=== PATIENT | male | born 1965 | race Caucasian/White ===

== ENCOUNTER 2021-07-30 22:52 | Inpatient (IN) ==
[2021-07-30 23:50] LABS: Basophils # 0.1 10*3/uL (0.0-0.2); Basophils % 0.7 % (0.0-0.8); Eosinophils # 0.3 10*3/uL (0.0-0.87); Eosinophils % 2.4 % (0.00-10.9); Hematocrit 44.3 VOL% (42.0-52.0); Hemoglobin 14.1 GM/DL (14.0-18.0); Immature Granulocytes % 1.4 %; Immature Granulocytes Absolute 0.16 #; Lymphocytes % 17.6 % (21.2-54.2); Mean Corpuscular HGB Conc 31.8 GM/DL (32-36); Mean Corpuscular Volume 92.3 FL (87-102); Mean Platelet Volume 11.5 FL (9.6-12.0); Monocytes % 5.7 % (1.7-12.7); Neutrophils % 72.2 % (38.7-73.9); Platelet Count 360 T/CUMM (130-400); Red Cell Distribution Width 14.3 % (9.3-17.3); White Blood Count 11.4 T/CUMM (4-12)
[2021-07-31 00:08] LABS: Alanine Aminotransferase 43 U/L (16-61); Albumin 3.4 G/DL (3.4-5.0); Alkaline Phosphatase 95 U/L (45-117); Aspartate Amino Transferase 45 U/L (0-37); Blood Urea Nitrogen 13 MG/DL (7-18); Carbon Dioxide 25 MMOL/L (21-32); Estimated Glom Filtration Rate 74 ML/MIN; Glucose 131 MG/DL (74-106); Osmolality,Calculated 278.5 MOS/KG (273-304); Potassium 3.9 MMOL/L (3.5-5.1); Sodium 139 MMOL/L (136-145); Total Protein 6.9 G/DL (6.4-8.2)
[2021-07-31] MEDS ORDERED: LEVOFLOXACIN INJ 750 MG/150 ML PREMIX IV STA (00:36)
[2021-07-31] MEDS ORDERED: ONDANSETRON 4 MG/2 ML VIAL IV STA (00:36)
[2021-07-31] MEDS ORDERED: methylPREDNISolone SOD SUC 125 MG/2 ML VIAL IV STA (00:36)
[2021-07-31] MEDS ORDERED: SODIUM CHLORIDE 0.9% 500 ML IV STA ×2 (00:36→10:05)
[2021-07-31] MEDS ORDERED: ENOXAPARIN 120 MG/0.8 ML SYRINGE SUBCUT STA (00:46)
[2021-07-31] MEDS ORDERED: ASPIRIN EC 325 MG TABLET PO STA (00:49)
[2021-07-31] MEDS ORDERED: ALBUTEROL NEB SOLN 5 MG/ML 20 ML/BOTTLE CONT NEB SCH (01:00)
[2021-07-31] MEDS ORDERED: GLUCAGON 1 MG VIAL IM PRN (02:54)
[2021-07-31] MEDS ORDERED: METOPROLOL TARTRATE 25 MG TABLET PO STA (02:54)
[2021-07-31] MEDS ORDERED: DEXTROSE 50% 25 GM/50 ML VIAL IV PRN (02:54)
[2021-07-31] MEDS ORDERED: MORPHINE 2 MG/1 ML SYRINGE IV PRN (03:21)
[2021-07-31 03:39] LABS: Basophils # 0.1 10*3/uL (0.0-0.2); Basophils % 0.4 % (0.0-0.8); Eosinophils # 0.1 10*3/uL (0.0-0.87); Eosinophils % 0.4 % (0.00-10.9); Hematocrit 42.9 VOL% (42.0-52.0); Hemoglobin 13.7 GM/DL (14.0-18.0); Immature Granulocytes % 0.8 %; Immature Granulocytes Absolute 0.11 #; Lymphocytes # 1.4 10*3/uL (1.4-4.0); Lymphocytes % 9.8 % (21.2-54.2); Mean Corpuscular HGB Conc 31.9 GM/DL (32-36); Mean Corpuscular Volume 93.1 FL (87-102); Mean Platelet Volume 11.4 FL (9.6-12.0); Monocytes % 4.6 % (1.7-12.7); Platelet Count 337 T/CUMM (130-400); Red Blood Count 4.61 MC/CUMM (3.8-5.5); Red Cell Distribution Width 14.3 % (9.3-17.3); White Blood Count 13.9 T/CUMM (4-12)
[2021-07-31 04:02] LABS: Amorphous Crystals,Urine Occasional /HPF (Few); Bacteria,Urine Occasional /HPF (Few); Bilirubin,Urine Negative (Negative); Blood, Urine Negative (Negative); Calcium Oxalate Crystals,Urine Occasional /HPF (Few); Glucose,Urine (UA) Negative (Negative); Hyaline Casts,Urine 5 /LPF (0-3); Ketones,Urine Negative (Negative); Mucus,Urine Few /LPF (Occasional); Nitrite,Urine Negative (Negative); Protein,Urine 100 MG/DL; RBC,Urine 1 /HPF (0-4); Urine Appearance Slightly Hazy (Clear); Urine Color Yellow (Yellow); Urine Specific Gravity 1.018 (1.001-1.035)
[2021-07-31 04:03] LABS: Barbiturates Screen,Urine Negative (Negative); Benzodiazepines Screen,Urine Negative (Negative); Cannabinoid Screen,Urine Negative (Negative); Opiate Screen,Urine Negative (Negative); Phencyclidine Screen,Urine Negative (Negative)
[2021-07-31 04:09] LABS: Albumin 3.4 G/DL (3.4-5.0); Calcium 9.8 MG/DL (8.5-10.1); Osmolality,Calculated 278.7 MOS/KG (273-304); Potassium 4.5 MMOL/L (3.5-5.1); Risk Ratio 7.23; Thyroid Stimulating Hormone 0.763 uIU/ml (0.358-3.74); Total Protein 6.9 G/DL (6.4-8.2); VLDL Cholesterol 34.4 MG/DL
[2021-07-31] MEDS: ATORVASTATIN 40 MG TABLET PO SCH (08:55)
[2021-07-31] MEDS: PANTOPRAZOLE 40 MG TABLET PO SCH (08:55)
[2021-07-31] MEDS: methylPREDNISolone SOD SUC 40 MG/1 ML VIAL IV SCH ×2 (08:56→21:57)
[2021-07-31] MEDS: NICOTINE 21 MG/24 HR PATCH TRANSDERM SCH ×2 (08:57→14:10)
[2021-07-31] MEDS ORDERED: SODIUM CHLORIDE 0.9% 1,000 ML IV ONE (09:53)
[2021-07-31] MEDS: ALBUTEROL/IPRATROPIUM 3 ML NEB RESP TX PRN ×2 (10:15→17:53)
[2021-07-31] MEDS: ENOXAPARIN 120 MG/0.8 ML SYRINGE SUBCUT SCH (14:10)
[2021-07-31] MEDS: NITROGLYCERIN 2% OINT 1 INCH/GM PACK TOP SCH ×2 (15:33→18:25)
[2021-07-31] MEDS: ONDANSETRON 4 MG/2 ML VIAL IV PRN (18:09)
[2021-07-31] MEDS: METOPROLOL TARTRATE 25 MG TABLET PO SCH (21:57)
[2021-07-31] MEDS: LEVOFLOXACIN INJ 750 MG/150 ML PREMIX IV SCH (21:58)
[2021-07-31] MEDS ORDERED: LEVOFLOXACIN INJ 750 MG/150 ML PREMIX IV SCH (22:00)
[2021-08-01] MEDS: ENOXAPARIN 120 MG/0.8 ML SYRINGE SUBCUT SCH ×2 (00:44→13:37)
[2021-08-01] MEDS: ONDANSETRON 4 MG/2 ML VIAL IV PRN (00:44)
[2021-08-01 06:14] LABS: Basophils % 0.1 % (0.0-0.8); Hematocrit 40.8 VOL% (42.0-52.0); Hemoglobin 12.8 GM/DL (14.0-18.0); Immature Granulocytes Absolute 0.13 #; Lymphocytes # 1.6 10*3/uL (1.4-4.0); Lymphocytes % 11.6 % (21.2-54.2); Mean Corpuscular HGB Conc 31.4 GM/DL (32-36); Mean Corpuscular Volume 94.9 FL (87-102); Monocytes % 6.3 % (1.7-12.7); Platelet Count 322 T/CUMM (130-400); Red Cell Distribution Width 14.5 % (9.3-17.3); White Blood Count 13.7 T/CUMM (4-12)
[2021-08-01] MEDS: NITROGLYCERIN 2% OINT 1 INCH/GM PACK TOP SCH (06:51)
[2021-08-01 07:59] LABS: Calcium 10.5 MG/DL (8.5-10.1); Osmolality,Calculated 272.1 MOS/KG (273-304); Potassium 5.9 MMOL/L (3.5-5.1)
[2021-08-01] MEDS: PANTOPRAZOLE 40 MG TABLET PO SCH (09:53)
[2021-08-01] MEDS: ASPIRIN EC 325 MG TABLET PO SCH (09:53)
[2021-08-01] MEDS: METOPROLOL TARTRATE 25 MG TABLET PO SCH ×2 (09:53→20:51)
[2021-08-01] MEDS: methylPREDNISolone SOD SUC 40 MG/1 ML VIAL IV SCH ×2 (09:53→20:52)
[2021-08-01] MEDS: ATORVASTATIN 40 MG TABLET PO SCH (09:53)
[2021-08-01] MEDS: NICOTINE 21 MG/24 HR PATCH TRANSDERM SCH (10:01)
[2021-08-01] MEDS: cefTRIAXone 1,000 MG in SODIUM CHLORIDE 0.9% 100 ML IV SCH (13:37)
[2021-08-01] MEDS: AZITHROMYCIN INJ 500 MG in SODIUM CHLORIDE 0.9% 250 ML IV SCH (14:15)
[2021-08-01] MEDS ORDERED: MAGNESIUM HYDROXIDE SUSP 30 ML UDCUP PO PRN (16:03)
[2021-08-01] MEDS: ALBUTEROL/IPRATROPIUM 3 ML NEB RESP TX PRN (20:19)
[2021-08-01] MEDS: LEVOFLOXACIN INJ 750 MG/150 ML PREMIX IV SCH (20:53)
[2021-08-02 06:31] LABS: Basophils % 0.1 % (0.0-0.8); Hematocrit 39.2 VOL% (42.0-52.0); Hemoglobin 12.5 GM/DL (14.0-18.0); Immature Granulocytes % 0.8 %; Immature Granulocytes Absolute 0.11 #; Lymphocytes # 1.8 10*3/uL (1.4-4.0); Lymphocytes % 12.7 % (21.2-54.2); Mean Corpuscular HGB Conc 31.9 GM/DL (32-36); Mean Corpuscular Volume 94.7 FL (87-102); Mean Platelet Volume 12.1 FL (9.6-12.0); Monocytes % 5.5 % (1.7-12.7); Neutrophils % 80.9 % (38.7-73.9); Platelet Count 287 T/CUMM (130-400); Red Blood Count 4.14 MC/CUMM (3.8-5.5); Red Cell Distribution Width 14.6 % (9.3-17.3); White Blood Count 14.4 T/CUMM (4-12)
[2021-08-02 06:45] LABS: Potassium 4.9 MMOL/L (3.5-5.1)
[2021-08-02] MEDS ORDERED: MAGNESIUM SULF RIDER 2 GM/50 ML PREMIX IV PRN (07:00)
[2021-08-02] MEDS ORDERED: POTASSIUM CHLORIDE RIDER 10 MEQ/100 ML PREMIX IV PRN (07:00)
[2021-08-02] MEDS: SODIUM CHLORIDE 0.9% 1,000 ML IV SCH ×2 (09:01→21:09)
[2021-08-02] MEDS: METOPROLOL TARTRATE 25 MG TABLET PO SCH ×2 (10:35→21:03)
[2021-08-02] MEDS: PANTOPRAZOLE 40 MG TABLET PO SCH (10:35)
[2021-08-02] MEDS: ATORVASTATIN 40 MG TABLET PO SCH (10:35)
[2021-08-02] MEDS: ASPIRIN EC 325 MG TABLET PO SCH (10:35)
[2021-08-02] MEDS: methylPREDNISolone SOD SUC 40 MG/1 ML VIAL IV SCH ×2 (10:36→21:02)
[2021-08-02] MEDS: NICOTINE 21 MG/24 HR PATCH TRANSDERM SCH (10:41)
[2021-08-02] MEDS ORDERED: HEPARIN/NACL 0.9% 2 UNITS/ML 3,000 UNIT/1,500 ML BAG IV ONE (11:40)
[2021-08-02] MEDS ORDERED: LIDOCAINE 1% 20 ML VIAL ONE (11:40)
[2021-08-02] MEDS ORDERED: DIAZEPAM 5 MG TABLET PO ONE (12:00)
[2021-08-02] MEDS ORDERED: diphenhydrAMINE CAP 50 MG CAPSULE PO ONE (12:00)
[2021-08-02] MEDS ORDERED: fentaNYL 100 MCG/2 ML VIAL ONE (12:48)
[2021-08-02] MEDS ORDERED: MIDAZOLAM 2 MG/2 ML VIAL ONE (12:48)
[2021-08-02] MEDS ORDERED: HEPARIN 5,000 UNIT/1 ML VIAL ONE ×2 (13:23→13:40)
[2021-08-02] MEDS ORDERED: CLOPIDOGREL 300 MG TABLET ONE (13:26)
[2021-08-02] MEDS ORDERED: NITROGLYCERIN DRIP 50 MG/250 ML BOTTLE IV ONE (13:36)
[2021-08-02] MEDS ORDERED: MORPHINE 10 MG/1 ML VIAL ONE (14:08)
[2021-08-02] MEDS ORDERED: ATROPINE 1 MG/10 ML SYRINGE ONE (14:12)
[2021-08-02] MEDS ORDERED: EPTIFIBATIDE 20,000 MCG/10 ML VIAL ONE (14:14)
[2021-08-02] MEDS ORDERED: EPTIFIBATIDE 0 MG/0 ML BOTTLE IV ONE (14:14)
[2021-08-02] MEDS: cefTRIAXone 1,000 MG in SODIUM CHLORIDE 0.9% 100 ML IV SCH (15:19)
[2021-08-02] MEDS: AZITHROMYCIN INJ 500 MG in SODIUM CHLORIDE 0.9% 250 ML IV SCH (16:00)
[2021-08-02] MEDS: LEVOFLOXACIN INJ 750 MG/150 ML PREMIX IV SCH (21:03)
[2021-08-02 21:05] VITALS: BP 99/61
[2021-08-03] MEDS: SODIUM CHLORIDE 0.9% 1,000 ML IV SCH ×3 (01:13→10:28)
[2021-08-03 05:46] LABS: Basophils % 0.1 % (0.0-0.8); Hematocrit 37.9 VOL% (42.0-52.0); Hemoglobin 12.4 GM/DL (14.0-18.0); Immature Granulocytes % 0.8 %; Immature Granulocytes Absolute 0.11 #; Lymphocytes % 14.3 % (21.2-54.2); Mean Corpuscular HGB Conc 32.7 GM/DL (32-36); Mean Corpuscular Volume 92.4 FL (87-102); Mean Platelet Volume 12.3 FL (9.6-12.0); Monocytes % 6.4 % (1.7-12.7); Neutrophils % 78.4 % (38.7-73.9); Platelet Count 277 T/CUMM (130-400); Red Cell Distribution Width 14.5 % (9.3-17.3); White Blood Count 13.7 T/CUMM (4-12)
[2021-08-03 06:40] LABS: Calcium 9.5 MG/DL (8.5-10.1); Potassium 4.4 MMOL/L (3.5-5.1)
[2021-08-03] MEDS ORDERED: CLOPIDOGREL 75 MG TABLET PO SCH (09:00)
[2021-08-03] MEDS: methylPREDNISolone SOD SUC 40 MG/1 ML VIAL IV SCH (10:26)
[2021-08-03] MEDS: PANTOPRAZOLE 40 MG TABLET PO SCH (10:26)
[2021-08-03] MEDS: METOPROLOL TARTRATE 25 MG TABLET PO SCH (10:26)
[2021-08-03] MEDS: ATORVASTATIN 40 MG TABLET PO SCH (10:27)
[2021-08-03] MEDS: ASPIRIN EC 325 MG TABLET PO SCH (10:27)
[2021-08-03] MEDS: NICOTINE 21 MG/24 HR PATCH TRANSDERM SCH (14:47)
[2021-08-04] MEDS ORDERED: ASPIRIN EC 81 MG TABLET PO SCH (09:00)
== END 2021-08-03 12:56 | disposition home or self-care (01) | DRG 246 ==
LOC: EDUNIT# → EDBD → N.ED 22:52 → N.EDINP 07-31 02:54 → SUATTDRO 07-31 02:54 → N.EDINP 07-31 12:48 → N.TELES 07-31 13:08
PROVIDERS: ADMIT Internal Medicine; ATTEND Internal Medicine

== ENCOUNTER 2021-11-05 09:35 | Observation (INO) ==
[2021-11-05] MEDS ORDERED: HEPARIN 5,000 UNIT/1 ML VIAL IV ONE (10:11)
[2021-11-05] MEDS ORDERED: MORPHINE 2 MG/1 ML SYRINGE IV STA (10:11)
[2021-11-05] MEDS ORDERED: NITROGLYCERIN 2% OINT 1 INCH/GM PACK TOP STA (10:11)
[2021-11-05] MEDS ORDERED: ASPIRIN 325 MG TABLET PO STA (10:11)
[2021-11-05] MEDS ORDERED: ONDANSETRON 4 MG/2 ML VIAL IV STA (10:11)
[2021-11-05 10:26] LABS: Basophils # 0.1 10*3/uL (0.0-0.2); Basophils % 0.5 % (0.0-0.8); Eosinophils # 0.2 10*3/uL (0.0-0.87); Eosinophils % 1.6 % (0.00-10.9); Hematocrit 41.8 VOL% (42.0-52.0); Hemoglobin 13.4 GM/DL (14.0-18.0); Immature Granulocytes % 0.6 %; Immature Granulocytes Absolute 0.07 #; Lymphocytes # 1.8 10*3/uL (1.4-4.0); Lymphocytes % 16.3 % (21.2-54.2); Mean Corpuscular HGB Conc 32.1 GM/DL (32-36); Mean Corpuscular Volume 91.3 FL (87-102); Mean Platelet Volume 11.5 FL (9.6-12.0); Monocytes % 6.9 % (1.7-12.7); Neutrophils % 74.1 % (38.7-73.9); Platelet Count 261 T/CUMM (130-400); Red Blood Count 4.58 MC/CUMM (3.8-5.5); Red Cell Distribution Width 15.1 % (9.3-17.3); White Blood Count 11.1 T/CUMM (4-12)
[2021-11-05] MEDS ORDERED: HEPARIN DRIP 25,000 UNITS/500 ML PREMIX IV SCH (10:30)
[2021-11-05 10:48] LABS: Albumin 3.6 G/DL (3.4-5.0); Calcium 9.8 MG/DL (8.5-10.1); Osmolality,Calculated 280.4 MOS/KG (273-304); Potassium 4.4 MMOL/L (3.5-5.1); Total Protein 7.1 G/DL (6.4-8.2)
[2021-11-05 10:52] LABS: PT Patient Result 11.7 SECS (10.5-12.0); Partial Thromboplastin Time 29.6 SECS (23.8-32.1)
[2021-11-05] MEDS ORDERED: SODIUM CHLORIDE 0.45% 1,000 ML IV SCH (12:00)
[2021-11-05] MEDS ORDERED: ONDANSETRON 4 MG/2 ML VIAL IV PRN (12:01)
[2021-11-05] MEDS ORDERED: ACETAMINOPHEN 325 MG TABLET PO PRN (12:01)
[2021-11-05] MEDS ORDERED: HEPARIN/NACL 0.9% 2 UNITS/ML 3,000 UNIT/1,500 ML BAG IV ONE (12:14)
[2021-11-05] MEDS ORDERED: LIDOCAINE 1% 20 ML VIAL ONE (12:14)
[2021-11-05] MEDS ORDERED: fentaNYL 100 MCG/2 ML VIAL ONE ×2 (13:49→15:24)
[2021-11-05] MEDS ORDERED: MIDAZOLAM 2 MG/2 ML VIAL ONE (13:49)
[2021-11-05] MEDS ORDERED: HEPARIN 5,000 UNIT/1 ML VIAL ONE (14:52)
[2021-11-05] MEDS ORDERED: FUROSEMIDE 40 MG TABLET PO SCH (17:00)
[2021-11-05] MEDS: lisinopriL 10 MG TABLET PO SCH (17:27)
[2021-11-05] MEDS: FUROSEMIDE 20 MG TABLET PO SCH (17:27)
[2021-11-05] MEDS ORDERED: ATORVASTATIN 40 MG TABLET PO SCH (21:00)
[2021-11-05] MEDS: METOPROLOL SUCCINATE XL 25 MG TABLET PO SCH (21:49)
[2021-11-06] MEDS ORDERED: guaiFENesin/DM ER 600-30 MG TABLET PO PRN (01:04)
[2021-11-06 07:19] LABS: Basophils # 0.1 10*3/uL (0.0-0.2); Basophils % 0.6 % (0.0-0.8); Eosinophils # 0.1 10*3/uL (0.0-0.87); Eosinophils % 1.1 % (0.00-10.9); Hematocrit 38.1 VOL% (42.0-52.0); Hemoglobin 12.3 GM/DL (14.0-18.0); Immature Granulocytes % 0.6 %; Immature Granulocytes Absolute 0.07 #; Lymphocytes # 2.7 10*3/uL (1.4-4.0); Lymphocytes % 24.9 % (21.2-54.2); Mean Corpuscular HGB Conc 32.3 GM/DL (32-36); Mean Corpuscular Volume 92.5 FL (87-102); Mean Platelet Volume 11.5 FL (9.6-12.0); Monocytes % 8.9 % (1.7-12.7); Neutrophils % 63.9 % (38.7-73.9); Platelet Count 263 T/CUMM (130-400); Red Blood Count 4.12 MC/CUMM (3.8-5.5); Red Cell Distribution Width 15.1 % (9.3-17.3)
[2021-11-06 07:46] LABS: Calcium 9.6 MG/DL (8.5-10.1); Osmolality,Calculated 280.4 MOS/KG (273-304); Potassium 4.4 MMOL/L (3.5-5.1)
[2021-11-06] MEDS ORDERED: CLOPIDOGREL 75 MG TABLET PO SCH (09:00)
[2021-11-06] MEDS ORDERED: FUROSEMIDE 40 MG TABLET PO SCH (09:00)
[2021-11-06] MEDS ORDERED: ASPIRIN EC 81 MG TABLET PO SCH (09:00)
[2021-11-06] MEDS: METOPROLOL SUCCINATE XL 25 MG TABLET PO SCH (09:42)
[2021-11-06] MEDS: FUROSEMIDE 20 MG TABLET PO SCH (09:42)
[2021-11-06] MEDS: lisinopriL 10 MG TABLET PO SCH (09:42)
[2021-11-06 11:08] VITALS: BP 104/68
== END 2021-11-06 11:43 | disposition home or self-care (01) ==
LOC: N.EDINP 09:35 → N.ED 09:35 → N.EDINP 13:45 → N.TELEN 16:13
PROVIDERS: ADMIT Internal Medicine Cardiovascular Disease; ATTEND Internal Medicine Cardiovascular Disease

== ENCOUNTER 2022-01-27 00:05 | Observation (INO) ==
[2022-01-27] MEDS ORDERED: ALBUTEROL/IPRATROPIUM 3 ML NEB RESP TX STA (03:30)
[2022-01-27 03:52] LABS: Basophils # 0.1 10*3/uL (0.0-0.2); Basophils % 0.6 % (0.0-0.8); Eosinophils # 0.5 10*3/uL (0.0-0.87); Eosinophils % 4.7 % (0.00-10.9); Hematocrit 44.3 VOL% (42.0-52.0); Hemoglobin 14.5 GM/DL (14.0-18.0); Immature Granulocytes % 0.4 %; Immature Granulocytes Absolute 0.04 #; Lymphocytes # 3.2 10*3/uL (1.4-4.0); Lymphocytes % 28.1 % (21.2-54.2); Mean Corpuscular HGB Conc 32.7 GM/DL (32-36); Mean Corpuscular Volume 91.7 FL (87-102); Mean Platelet Volume 11.6 FL (9.6-12.0); Monocytes % 7.9 % (1.7-12.7); Neutrophils % 58.3 % (38.7-73.9); Platelet Count 232 T/CUMM (130-400); Red Blood Count 4.83 MC/CUMM (3.8-5.5); Red Cell Distribution Width 14.3 % (9.3-17.3); White Blood Count 11.4 T/CUMM (4-12)
[2022-01-27 04:03] LABS: PT Patient Result 11.1 SECS (10.5-12.0); Partial Thromboplastin Time 28.8 SECS (23.8-32.1)
[2022-01-27 04:13] LABS: Albumin 4.1 G/DL (3.4-5.0); Calcium 10.2 MG/DL (8.5-10.1); Osmolality,Calculated 276.7 MOS/KG (273-304); Potassium 4.4 MMOL/L (3.5-5.1)
[2022-01-27] MEDS ORDERED: NITROGLYCERIN SL 0.4 MG TABLET SL STA (04:21)
[2022-01-27] MEDS ORDERED: methylPREDNISolone SOD SUC 125 MG/2 ML VIAL IV STA (04:26)
[2022-01-27] MEDS ORDERED: ASPIRIN 325 MG TABLET PO STA (04:26)
[2022-01-27] MEDS ORDERED: ENOXAPARIN 30 MG/0.3 ML SYRINGE SUBCUT STA (04:28)
[2022-01-27] MEDS ORDERED: ENOXAPARIN 100 MG/ML SYRINGE SUBCUT STA (04:30)
[2022-01-27] MEDS ORDERED: GLUCAGON 1 MG VIAL IM PRN (04:44)
[2022-01-27] MEDS ORDERED: hydrALAZINE 20 MG/1 ML VIAL IV PRN (04:44)
[2022-01-27] MEDS ORDERED: ACETAMINOPHEN 325 MG TABLET PO PRN (04:44)
[2022-01-27] MEDS ORDERED: SIMETHICONE CHEW 125 MG TABLET PO PRN (04:44)
[2022-01-27] MEDS ORDERED: ONDANSETRON 4 MG/2 ML VIAL IV PRN (04:44)
[2022-01-27] MEDS ORDERED: guaiFENesin/DM ER 600-30 MG TABLET PO PRN (04:44)
[2022-01-27] MEDS ORDERED: MAGNESIUM SULF RIDER 2 GM/50 ML PREMIX IV PRN (04:53)
[2022-01-27] MEDS ORDERED: POTASSIUM CHLORIDE 20 MEQ TABLET PO PRN (04:53)
[2022-01-27] MEDS ORDERED: MAGNESIUM SULF RIDER 4 GM/100 ML PREMIX IV PRN (04:53)
[2022-01-27] MEDS ORDERED: POTASSIUM CHLORIDE RIDER 10 MEQ/100 ML PREMIX IV PRN (04:53)
[2022-01-27] MEDS ORDERED: FUROSEMIDE 40 MG/4 ML VIAL IV STA (04:54)
[2022-01-27] MEDS ORDERED: DEXTROSE 10% 250 ML BAG IV PRN (04:59)
[2022-01-27] MEDS ORDERED: ALBUTEROL/IPRATROPIUM 3 ML NEB RESP TX SCH (07:00)
[2022-01-27] MEDS ORDERED: METOPROLOL SUCCINATE XL 25 MG TABLET PO SCH (09:00)
[2022-01-27] MEDS ORDERED: DOCUSATE SODIUM 100 MG CAPSULE PO SCH (09:00)
[2022-01-27] MEDS ORDERED: BUDESONIDE/FORMOTEROL 160-4.5 INHALER 6 GM INH SCH (09:00)
[2022-01-27] MEDS ORDERED: lisinopriL 10 MG TABLET PO SCH (09:00)
[2022-01-27] MEDS ORDERED: PANTOPRAZOLE 40 MG TABLET PO SCH (09:00)
[2022-01-27] MEDS ORDERED: ASPIRIN EC 81 MG TABLET PO SCH (09:00)
[2022-01-27 11:22] VITALS: BP 134/92
[2022-01-27] MEDS ORDERED: methylPREDNISolone SOD SUC 40 MG/1 ML VIAL IV SCH (12:00)
[2022-01-27] MEDS ORDERED: FUROSEMIDE 20 MG TABLET PO SCH (16:00)
[2022-01-27] MEDS ORDERED: ATORVASTATIN 40 MG TABLET PO SCH (21:00)
== END 2022-01-27 11:05 | disposition home or self-care (01) ==
LOC: N.ED 00:05 → N.EDINP 00:05 → SUATTDRO 05:27 → N.EDINP 11:05
PROVIDERS: ADMIT Internal Medicine; ATTEND Hospitalist